=== PATIENT | female | born 1990 | race Caucasian/White ===

== ENCOUNTER → 2021-07-10 12:29 | Outpatient (BNVA) | payer BC, MEDICAID, SELFPAY | PROVIDERS: PCP Nurse Practitioner Family; Referring Provider Nurse Practitioner Family; Visit Provider Specialist | DX: G40.309 Generalized idiopathic epilepsy and epileptic syndromes, not intractable, without status epilepticus (principal) | CPT/HCPCS: 99204 ==

== ENCOUNTER 2021-08-03 08:21 | Day surgery (SDC) | payer BC, MEDICAID, SELFPAY ==
[2021-08-02 12:04] VITALS: BMI 21.4
[2021-08-03] VITALS (9 sets, daily range): BP systolic 117–131; BP diastolic 67–93; PULSE 75–114; RESP 12–18; TEMP 36.1–36.6; O2SAT 94–100
[2021-08-03 08:37] LABS: OR HCG Qualitative Urine Negative (Negative)
[2021-08-03] MEDS: sodium chloride 0.9% 1,000 ML 30 ML IV (08:48)
--- NOTE | 2021-08-03 09:47 | ANES.PREANE2 ---
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 Operation Date: 08/03/21 09:45 Proposed Procedures p Direct Laryngoscopyw exc of larynegeal pap 45667/D14.1 laryngeal papillomatosis(Not Applicable) - Ashu Hung MD Familial anesthetic complications: None Was Beta Abilio taken within 24 hours: N/A Was Clonidine taken within 24 hours: N/A Last intake: Intake Last Liquid Date 08/02/21 Last Liquid Time 20:00 Last Solid Date 08/02/21 Last Solid Time 20:00 Social Tobacco and No alcohol Exam alert, oriented x 3, clear to auscultation bilaterally and regular rate & rhythm Airway Submandibular: within normal limits Cervical ROM: within normal limits Mallampati: Class II Dentition: chipped Comments: Comments: Hoarseness Pulmonary Chronic Obstructive Pulmonary Disease Neuropsych Seizure Anesthetic Plan ASA status: 2 Anesthesia: General Medications/Allergies Home Medications Medication Instructions Recorded Confirmed Last Taken Type gabapentin 300 mg (9)-600 mg (69) 3 tab PO BID 10/05/20 08/03/21 08/03/21 06:00 History tablet,extended release 24 hr levetiracetam 500 mg 1,500 mg PO BID 08/02/21 08/03/21 08/03/21 06:00 History tablet,extended release 24 hr (Keppra XR) zonisamide 100 mg capsule 200 mg PO BID 08/02/21 08/03/21 08/03/21 06:00 History Allergies Allergy/AdvReac Type Severity Reaction Status Date / Time acetaminophen Allergy Intermediate hives Verified 08/03/21 08:32 hydrocodone Allergy Intermediate ALGY-Hives Verified 08/03/21 08:32 norepinephrine Allergy Unknown Unknown Verified 08/03/21 08:32 [From Levophed (bitartrate)] Current Medications Generic Name Dose Route Start Last Admin Trade Name Freq PRN Reason Stop Dose Admin Sodium Chloride 1,000 mls @ 30 mls/hr 08/03/21 08:30 08/03/21 08:48 Sodium Chloride 0.9% IV 08/04/21 08:29 30 mls/hr .Q24H JACQUES Administration PFSH Anesthesia Social History Smoking and tobacco status: never smoked Female Reproductive History Date of last menstrual period: 07/26/21 Data Anesthesia Cardiac Studies: No Data to Display
--- NOTE | 2021-08-03 10:02 | W.PM.OPSUD ---
Surgery/Procedure H&P Update DATE OF PROCEDURE: August 03, 2021 DATE H&P PERFORMED: 06/28/21 H&P UPDATE INFORMATION: I have reviewed H&P completed within last 30 days, I have examined patient prior to procedure and No changes to prior documentation PREOP DIAGNOSIS: Recurrent laryngeal papillomatosis/chronic hoarseness PRIMARY INDICATION FOR PROCEDURE: Recurrent laryngeal papilloma with hoarseness PLANNED PROCEDURE: Operation Date: 08/03/21 09:45 Proposed Procedures p Direct Laryngoscopyw exc of larynegeal pap 82117/D14.1 laryngeal papillomatosis(Not Applicable) - Ashu Hung MD
[2021-08-03] MEDS: EPINEPHrine 1 mg/mL INJ XX (10:40)
--- NOTE | 2021-08-03 10:53 | PM.OP ---
Operative Report Date of procedure: August 03, 2021 Pre-op diagnosis: Preop Diagnosis Recurrent laryngeal papillomatosis/chronic hoarseness Post-op diagnosis: Same Post-op findings: Approximately 8 mm of what appears to be squamous papilloma on the aryepiglottic fold on the right side from the lateral aspect around the edge and around to the medial side. Procedure done: Direct suspension microscopic laryngoscopy and excision of right aryepiglottic fold papilloma. Implants: No implants. Specimens removed/disposition: Segments of papilloma and surrounding normal mucous membrane removed from right aryepiglottic fold Pathology: Papilloma segments Surgeon: Ashu Hung MD Anesthesia: General Estimated blood loss: 10 mL Complications: No complications encountered Findings: Papillomatous looking lesion found on the right aryepiglottic fold extending from the lateral aspect than the posterior edge and then to the medial side measuring approximately 8 mm total. All visible papilloma and some surrounding mucous membrane was excised. Brief History: 31-year-old female patient who has had laryngeal papilloma in the past. Recently found to have recurrence involving the right aryepiglottic fold. Being brought to the operating room at this time to undergo suspension microscopic laryngoscopy and resection of the papilloma with visible margins. The procedure its risks and complications were explained in detail to the patient. Informed consent was granted and witnessed. Risks discussed included bleeding infection numbness scarring swelling bruising recurrence of the papilloma and therefore need for additional treatment in the future and more serious risks associated with anesthesia such as heart attack or stroke or not surviving the surgery. Procedure: Description of procedure: The patient was placed on the operating table in the supine position. Adequate general endotracheal tube anesthesia was obtained. A timeout was accomplished identifying the patient date of plan procedure allergies fire risk and medications given. With all in agreement the procedure continued. The table was rotated 90 degrees. The head was dropped 15 degrees to the horizontal. Her eyes were taped shut and head drape was applied in usual fashion. Patient did receive Ancef IV for prophylaxis. A tooth guard was placed over her upper dentition. K-Y jelly was applied over the lips and mouthguard. The anterior commissure operating laryngoscope was placed in proper position and suspended from a Fraga stand. Then with the 400 lands on the microscope the microscopic laryngoscopy was performed. The only location of papilloma was identified on the right aryepiglottic fold. This was resected in a piecemeal fashion with cup forceps and micro laryngeal scissors. Some normal membrane adjacent to the papilloma was resected as well. This initially was taken from the lateral aspect then the leading posterior edge and then the medial aspect. This extended down to near the arytenoid mucous membrane. After complete visible resection to cottonoids soaked in 1-1000 epinephrine were applied to the operative field. After few minutes these were removed. No active bleeding was encountered at this point. The area was checked for any visible papilloma. None was noted. The suspension was taken down with the laryngoscope removed. The throat was suctioned. Patient's head was returned to the upright position with head drape and tape were removed. Then the patient was returned to anesthesia for wake-up and extubation. The patient tolerated the procedure well and estimated blood loss of 10 mL and arrived in recovery in stable condition.
--- NOTE | 2021-08-03 11:15 | SUR.PHASEI ---
1101 PT TO PACU VERBALLY DENIES PAIN VSS GOOD RESP EFFORT.
[2021-08-03] MEDS: TRAMadol 50 mg Tablet PO (11:52)
--- NOTE | 2021-08-03 15:04 | ANE.PACU2 ---
Inpatient post-anesthesia follow up: Airway intact: Yes Vital signs: Temperature 97.2 F Pulse Rate 75 Respiratory Rate 16 Blood Pressure 122/79 Pulse Oximetry 97 Oxygen Delivery Me thod Room Air Oxygen Flow Rate 8 Fraction of Inspir ed Oxygen Hydration adequate: Yes Nausea and vomiting: No Pain level: 2 Mental status: Baseline
--- NOTE | 2021-08-04 12:07 | PM.HP ---
Providers/Chief Complaint Admitting Physician: Ashu Hung MD Primary Care Provider: Airam Hinkle [employer] Chief Complaint: D14.1 Laryngeal papillomatosis/ R49.0 History of Present Illness Stephani Mercado is a 31 year old female who has had a history of laryngeal papilloma in the past. Its been several years since that occurred. Patient now found to have a right sided maykel epiglottic fold papilloma that wrapped from the lateral to the medial surface measuring less than 1 cm. Patient is preop to undergo direct suspension microscopic laryngoscopy and biopsy of this. Review of Systems Const: Reports: change in weight and fatigue; Denies: fever(s) Eyes: Reports: change in vision, blurry vision and seeing flashes; Denies: blind spots, photophobia, eye discomfort or other (Glaucoma) ENMT: Reports: hoarseness; Denies: odynophagia, change in hearing, tinnitus, sinus pain or other (Loss of taste/smell) Card: Denies: chest pain, palpitations, syncope or other (Calf cramps) Resp: Reports: dyspnea; Denies: non-productive cough, wheezing or hemoptysis GI: Denies: abdominal pain, nausea, heartburn, diarrhea, constipation or hematochezia : Reports: urinary frequency and urinary incontinence Musc: Denies: neck pain, muscle weakness or other (Muscle pain) Skin/Breast: Denies: rash, new lesions or breast mass Neuro: Reports: sensory changes and seizure-like activity; Denies: headache(s), numbness in extremities, weakness in extremities, difficulty walking, Slurred speech present or other (Sleep Apnea) Psych: Reports: irritability, memory loss and difficulty concentrating; Denies: depression or other (Personality changes) Endo: Reports: polyuria; Denies: polydipsia, excessive sweating or change in body appearance Ignacio/Lymph: Reports: easy bruising and easy bleeding; Denies: enlarged lymph nodes Medications/Allergies Home Medications Medication Instructions Recorded Confirmed Last Taken Type gabapentin 300 mg (9)-600 mg (69) 3 tab PO BID 10/05/20 08/03/21 08/03/21 06:00 History tablet,extended release 24 hr levetiracetam 500 mg 1,500 mg PO BID 08/02/21 08/03/21 08/03/21 06:00 History tablet,extended release 24 hr (Keppra XR) zonisamide 100 mg capsule 200 mg PO BID 08/02/21 08/03/21 08/03/21 06:00 History tramadol 50 mg tablet 50 mg PO Q6H PRN #30 tab 08/03/21 Unknown Rx Allergies Allergy/AdvReac Type Severity Reaction Status Date / Time acetaminophen Allergy Intermediate hives Verified 08/03/21 08:32 hydrocodone Allergy Intermediate ALGY-Hives Verified 08/03/21 08:32 norepinephrine Allergy Unknown Unknown Verified 08/03/21 08:32 [From Levophed (bitartrate)] PFSH Acute PFSH: Medical History (Updated 08/04/21 @ 12:12 by Ashu Hung MD) Psychiatric care Surgical History (Updated 08/04/21 @ 12:12 by Ashu Hung MD) History of laryngoscopy Social History Smoking and tobacco status: never smoked Female Reproductive History: Date of last menstrual period: 07/26/21 Vitals/I&O/Wt Last Vital Signs Temp 97.2 F L 08/03/21 11:58 Pulse 75 08/03/21 11:58 Resp 16 08/03/21 11:58 BP 122/79 08/03/21 11:58 Pulse Ox 97 08/03/21 11:58 Physical Exam Const: COMMON NORMALS: no acute distress, average body habitus, patient oriented x3, no limitations, healthy appearing, alert and well nourished HENMT: COMMON NORMALS: normocephalic, atraumatic, hearing grossly normal bilaterally, external ears normal, EAC's normal, TM's normal bilaterally, Normal external nose present, Normal nasal mucous membranes and turbinates present, moist oral mucous membranes, oropharynx normal, dentition normal and gingiva normal HEAD & SCALP: normal to inspection, normocephalic and atraumatic FACE & SINUS: normal facial exam, sinuses nontender and face symmetric NOSE: Normal external nose present, Normal nares present, No nasal polyps present, Normal nasal mucous membranes and turbinates present, Normal septum present and No nasal discharge present EXTERNAL EAR: Yes external ears normal and Yes mastoid abnormal EXTERNAL AUDITORY CANAL: EAC's normal TYMPANIC MEMBRANE: TM's normal bilaterally MOUTH: Normal oral and palatal mucosa present, lip normal, tongue normal and Normal salivary glands and ducts present THROAT: posterior oropharynx normal and uvula midline Eye: COMMON NORMALS: Equal, round and reactive pupils present, EOMs intact bilaterally, conjunctivae normal and no scleral icterus Neck/C-Spine: COMMON NORMALS: full ROM, no lymphadenopathy, supple, no meningeal signs, no JVD and Thyroid normal Lymph: LYMPHATIC: no lymphadenopathy noted Resp: COMMON NORMALS: normal respiratory effort, No retractions, No use of accessory muscles and clear to auscultation bilaterally Cardio: COMMON NORMALS: no JVD, regular rate, regular rhythm, No gallops present (Cardio), No clicks present (Cardio) and No murmurs present (Cardio) GI: COMMON NORMALS: Normal to inspection, nondistended, normoactive bowel sounds present, Soft to palpation and non-tender Neuro: COMMON NORMALS: patient oriented x3, CN's II-XII intact bilaterally, moves all extremities, no focal motor deficits and gait normal CRANIAL NERVES: Yes CN normal except as noted Psych: COMMON NORMALS: mental status grossly normal, Normal thought process present, cooperative, normal affect, speech normal, activity/motor behavior normal, denies hallucinations, denies homicidal ideation and denies suicidal ideation Skin: COMMON NORMALS: no rashes or lesions noted and no wounds A&P Assessment and plan (1) Laryngeal papillomatosis: Assessment: The patient has a right laryngeal papilloma on the areyepiglottic fold to undergo direct suspension microscopic laryngoscopy and removal of this papilloma under general anesthesia. Status: Acute Plan Plan: Proceed with direct suspension microscopic laryngoscopy and removal of the right areyepiglottic fold papilloma done under general anesthesia in the operating room. The procedure its risks and complications are understood and informed consent was granted and witnessed. Risks included hoarseness sore throat recurrence need for additional treatment as well as some bleeding and coughing. Attestations Medical Necessity Statement*: This will be accomplished as an outpatient through day surgery. Coding Level of Care Code Established Pt [facility] Nurse for [facility]wd Patient Type Established History Comprehensive Exam Comprehensive Medical Decision Making Moderate Complexity Diagnoses Laryngeal papillomatosis D14.1
== END 2021-08-03 12:04 | disposition home or self-care (01) ==
PROVIDERS: Anesthesiology; PCP Nurse Practitioner Family; Visit Provider Otolaryngology
PROC: 0CJS8ZZ Inspection of Larynx, Via Natural or Artificial Opening Endoscopic (ICD-10-PCS; CPT 31541; principal; 2021-08-03 09:35)
DX: D14.1 Benign neoplasm of larynx (principal); R49.0 Dysphonia; J44.9 Chronic obstructive pulmonary disease, unspecified
CPT/HCPCS: 31541; 81025; 84703; 88305; J0171; J0690; J2704; J2710; J3010; J3490; J7030